=== PATIENT | female | born 2000 | race Caucasian/White ===

== ENCOUNTER 2020-10-11 16:08 | Emergency (ER) | payer MEDICAID ==
[~2020-10-11] VITALS: Ht 160 cm; Wt 69.9 kg
[2020-10-11 17:02] VITALS: BP 145/81
== END 2020-10-11 17:05 | disposition home or self-care (01) ==
LOC: ER 16:08
DX: F41.9 Anxiety disorder, unspecified (principal); F43.10 Post-traumatic stress disorder, unspecified